=== PATIENT | female | born 1950 | race Caucasian/White ===

== ENCOUNTER → 2016-08-07 | Outpatient (CLI) | payer OTHER | LOC: FIMAGING 18:43 | PROVIDERS: ATTEND Family Medicine | DX: M50.922 Unspecified cervical disc disorder at C5-C6 level (principal); M43.12 Spondylolisthesis, cervical region; M48.02 Spinal stenosis, cervical region ==

== ENCOUNTER → 2016-10-21 | Outpatient (CLI) | payer OTHER | LOC: CIMAGING 10:56 | DX: Z12.31 Encounter for screening mammogram for malignant neoplasm of breast (principal) | CPT/HCPCS: G0202 ==

== ENCOUNTER → 2016-11-06 | Outpatient (CLI) | payer OTHER | LOC: CIMAGING 15:20 | PROVIDERS: ATTEND Family Medicine | DX: M41.86 Other forms of scoliosis, lumbar region (principal); M51.37 Other intervertebral disc degeneration, lumbosacral region | CPT/HCPCS: 72100-PO ==

== ENCOUNTER → 2016-12-17 | Outpatient (CLI) | payer OTHER | LOC: CIMAGING 17:02 | PROVIDERS: ATTEND Family Medicine | DX: M79.604 Pain in right leg (principal); R22.41 Localized swelling, mass and lump, right lower limb; Z86.718 Personal history of other venous thrombosis and embolism | CPT/HCPCS: 93971-PO ==

== ENCOUNTER → 2017-03-05 | Outpatient (CLI) | payer OTHER | LOC: CIMAGING 11:43 | PROVIDERS: ATTEND Family Medicine | DX: M25.512 Pain in left shoulder (principal) | CPT/HCPCS: 73030-PO ==

== ENCOUNTER → 2017-12-29 | Outpatient (CLI) | payer OTHER | DX: Z12.31 Encounter for screening mammogram for malignant neoplasm of breast (principal); Z80.3 Family history of malignant neoplasm of breast ==

== ENCOUNTER 2018-10-13 06:32 | Day surgery (SDC) | payer OTHER ==
[2018-10-13] MEDS ORDERED: diphenhydrAMINE 25 MG CAP PO ONE (06:34)
[2018-10-13] MEDS ORDERED: FAMOTIDINE 20 MG TAB PO ONE (06:34)
[2018-10-13] MEDS ORDERED: DIAZEPAM 5 MG TAB PO ONE (06:34)
[2018-10-13] MEDS ORDERED: ASPIRIN EC 325 MG TAB PO ONE (06:34)
[2018-10-13] MEDS ORDERED: NS 1,000 ML IV ONE (06:34)
[2018-10-13 07:08] LABS: PLATELET COUNT 247 10^3/uL (150-400)
[2018-10-13 07:16] LABS: INR 0.9 (0.83-1.16); PROTIME(PATIENT) 11.8 SEC (12.0-15.0)
[2018-10-13] MEDS ORDERED: HEPARIN 10,000 UNIT/10 ML MDV (1,000 UNIT/ML) ONE (07:27)
[2018-10-13] MEDS ORDERED: fentaNYL 100 MCG/2 ML INJ ONE ×2 (07:27→08:26)
[2018-10-13] MEDS ORDERED: MIDAZOLAM 2 MG/2 ML VIAL ONE ×2 (07:27→08:27)
[2018-10-13] MEDS ORDERED: VERAPAMIL 5 MG/2 ML VIAL ONE (07:27)
[2018-10-13] MEDS ORDERED: IOPAMIDOL (ISOVUE 370) 100 ML BTL IV ONE (07:28)
[2018-10-13] MEDS ORDERED: LIDOCAINE 1% 5 ML SDV ONE (07:28)
--- NOTE | 2018-10-13 07:45 | PDPROPOC ---
Sedation Plan of Care Sedation Plan of Care: vital signs stable, mental status noted, patient educated of risks, benefits, alternatives, patient can tolerate sedation ASA Classification: ASA 3 Planned drugs: fentanyl, midazolam Mallampati Score: Class 1 Mallampati Reference Image: Patient passed 3-3-2 rule?: Yes
--- NOTE | 2018-10-13 07:46 | PDHPUP ---
History & Physical Update H&P update statement: This history and physical update is based on an assessment of the patient which was completed after admission or registration (within 24 hours), but prior to the surgery/procedure. H&P update: H&P reviewed & patient examined, no change in patient's condition since H&P completed
--- NOTE | 2018-10-13 08:15 | PDDXCAT ---
Diagnostic Cath Note - . Date: 10/13/18 [employer]iding Instructor: Arjun Indication: CCC Class III and IV angina on medical treatment, other ( Intermediate risk stress test) - Procedure Access: left wrist Procedure: left heart catheterization, coronary angiography, left ventriculogram - Materials Left Heart Cath size: 4F Left Heart Cath materials: JL3.5, pigtail - Findings-Left Heart Catheterization LM: The left main is short and 6mm in size. The LM bifurcates into an LAD and Circumflex system. There is no evidence of flow limiting obstruction. LAD: The LAD is 4mm in size proximally and gives rise to an important 2.5mm diagonal. There is no evidence of flow-limiting obsturction. There is KIA III flow. LCX: The left circumflex is 4mm in size. The vessel gives rise to an important 2mm obtuse marignal branch. There is no evidence of flow-limiting obstruction. There is KIA III flow. RCA: The right coronary artery is a small vessel and 2mm in size. The RCA is dominant and gives rise to a PDA branch. There is no evidence of flow-limiting obstruction. There is KIA III flow thorughout. EDP: 17mmHg LVEF: 70% with evidence of mitral regurgitation on pressurized injection. (The patient has no evidence of mitral regurgitation on echocardiogram, so this is likely related to the catheter and presssurized injection as well as ventricular ectopy.) Wall motion: On the LV gram there is normal LV systolic function. The EF is 70% . There are no resting wall motion abnormalities. 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 There is no gradient on pullback across the aortic valve. There is no evidence of jayesh dissection or aneurysm formation of the thoracic aorta. - Findings-Right Heart Catheterization AO: 113/54/84 Complications: NONE Estimated blood loss: <50ml Closure method: TR Band Assessment: The patient has relatively tortuous and small vessels. There is non- flow limiting coronary disease that should be treated medically to achieve a non -HDL Cholesterol of less than 100 mg/dL. Plan: The patient should be medically treated to manage her hypertension and keep her blood pressure below 130/80mmHg. Intervention: NONE Patient Problems: Problems Problem Status Onset Abnormal nuclear stress test Acute
[2018-10-13] MEDS ORDERED: ETOMIDATE 40 MG/20 ML INJ ONE (08:26)
[2018-10-13] MEDS ORDERED: ONDANSETRON 4 MG/2 ML VIAL IVP PRN (08:42)
[2018-10-13] MEDS ORDERED: OXYCODONE/APAP 5/325 TAB PO PRN (08:42)
[2018-10-13] MEDS ORDERED: NITROGLYCERIN 0.4 MG BTL SL PRN (08:42)
[2018-10-13] MEDS ORDERED: HYDROCODONE/APAP 5/325 TAB PO PRN (08:42)
[2018-10-13] MEDS ORDERED: ATROPINE SULFATE 1 MG/10 ML SYR IVP PRN (08:42)
[2018-10-13] MEDS ORDERED: LABETALOL HCL 100 MG TAB PO PRN (08:43)
[2018-10-13] MEDS ORDERED: CHOLECALCIFEROL VIT D3 1,000 UNITS TAB PO SCH (09:00)
[2018-10-13] MEDS ORDERED: CYANO/VITAMIN B12 1000 MCG TAB PO SCH (09:00)
[2018-10-13] MEDS ORDERED: EPLERENONE 25 MG TAB PO SCH (09:00)
[2018-10-13] MEDS ORDERED: AZELASTINE NS SCH (21:00)
[2018-10-13] MEDS ORDERED: ASPIRIN 81 MG CHEWABLE TAB PO SCH (21:00)
[2018-10-13] MEDS ORDERED: FLUTICASONE NS SCH (21:00)
--- NOTE | 2018-10-14 14:37 | CPEKG ---
Test Reason : OPEN Blood Pressure : / mmHG Vent. Rate : 090 BPM Atrial Rate : 090 BPM P-R Int : 138 ms QRS Dur : 084 ms QT Int : 341 ms P-R-T Axes : 056 071 027 degrees QTc Int : 418 ms Sinus rhythm Consider left ventricular hypertrophy Confirmed by Nacho Sanders ([id number]) on 10/14/2018 2:37:18 PM Referred By: Xander Díaz Confirmed By:Nacho Sanders
== END 2018-10-13 11:50 | disposition home or self-care (01) ==
LOC: FCATH 06:32
PROVIDERS: ATTEND Internal Medicine Cardiovascular Disease
PROC: B2151ZZ Fluoroscopy of Left Heart using Low Osmolar Contrast (ICD-10-PCS; principal; 2018-10-13)
PROC: 4A023N7 Measurement of Cardiac Sampling and Pressure, Left Heart, Percutaneous Approach (ICD-10-PCS; principal; 2018-10-13)
PROC: B2111ZZ Fluoroscopy of Multiple Coronary Arteries using Low Osmolar Contrast (ICD-10-PCS; principal; 2018-10-13)
DX: I25.119 Atherosclerotic heart disease of native coronary artery with unspecified angina pectoris (principal); I10 Essential (primary) hypertension; E78.5 Hyperlipidemia, unspecified; I73.00 Raynaud's syndrome without gangrene; Z86.718 Personal history of other venous thrombosis and embolism; Z87.820 Personal history of traumatic brain injury; Z82.49 Family history of ischemic heart disease and other diseases of the circulatory system
CPT/HCPCS: J1644; J2250; J3010; Q9967